=== PATIENT | female | born 1955 | race American Indian/Alaskan Native ===

== ENCOUNTER 2019-05-01 09:59 | Outpatient (CLI) | payer OTHER ==
--- NOTE | 2019-05-01 10:43 | XRay Report ---
CLINICAL DATA: BACK PAIN TECHNICAL DATA: AP, lateral, and L5-S1 spot views lumbar spine. FINDINGS: Five lumbar-type vertebrae are identified. The vertebral body heights and intervertebral disc space h eights are normal except for moderate narrowing of the L4-L5 disc space with anterior and posterior o steophytes. Mild facet degenerative changes are present. The alignment is normal. There is no evidence of acute fracture, or dislocation. The visualized sacroiliac articulations are normal. 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
== END 2019-05-01 10:00 | disposition home or self-care (01) ==
LOC: XRAY 09:59
PROVIDERS: ATTEND Internal Medicine
DX: M47.816 Spondylosis without myelopathy or radiculopathy, lumbar region (principal)
CPT/HCPCS: 72100